=== PATIENT | male | born 1995 | race Caucasian/White ===

== ENCOUNTER 2021-05-12 07:35 | Outpatient (CLI) | payer OTHER | END 2021-05-12 07:36 | disposition home or self-care (01) | LOC: TBSIIMAG 07:35 | PROVIDERS: ATTEND Nurse Practitioner Family | DX: M54.50 Low back pain, unspecified (principal); G95.19 Other vascular myelopathies; M51.44 Schmorl's nodes, thoracic region; M48.04 Spinal stenosis, thoracic region; M48.061 Spinal stenosis, lumbar region without neurogenic claudication; M48.07 Spinal stenosis, lumbosacral region | CPT/HCPCS: 72148 ==